=== PATIENT | female | born 1960 | race Caucasian/White ===

== ENCOUNTER 2019-09-19 16:19 | Emergency (ER) | payer OTHER ==
[~2019-09-19] VITALS: Ht 149.9 cm; Wt 72.6 kg
[2019-09-19 16:24] VITALS: BP 125/50
[2019-09-19 16:50] VITALS: BP 125/50
== END 2019-09-19 16:52 | disposition home or self-care (01) ==
LOC: MED 16:19
DX: R30.0 Dysuria (principal); N39.0 Urinary tract infection, site not specified; E11.9 Type 2 diabetes mellitus without complications; I10 Essential (primary) hypertension; J45.909 Unspecified asthma, uncomplicated; Z88.6 Allergy status to analgesic agent; Z88.0 Allergy status to penicillin; Z90.711 Acquired absence of uterus with remaining cervical stump; Z90.49 Acquired absence of other specified parts of digestive tract; Z98.890 Other specified postprocedural states
CPT/HCPCS: 81002; 81025; 99283

== ENCOUNTER 2022-11-17 11:50 | Emergency (ER) | payer BC, OTHER ==
[~2022-11-17] VITALS: Ht 149.9 cm; Wt 70.3 kg
[2022-11-17 12:04] VITALS: BP 125/67; PULSE 77; RESP 14; TEMP 98.4; O2SAT 97
[2022-11-17] MEDS ORDERED: KETOROLAC 30 MG/ML VIAL IM ONE (13:00)
[2022-11-17 14:55] VITALS: BP 125/67; PULSE 77; RESP 14; TEMP 98.4; O2SAT 97
== END 2022-11-17 14:55 | disposition home or self-care (01) ==
LOC: MED 11:50
DX: S82.492A Other fracture of shaft of left fibula, initial encounter for closed fracture (principal); S92.352A Displaced fracture of fifth metatarsal bone, left foot, initial encounter for closed fracture; J45.909 Unspecified asthma, uncomplicated; E78.5 Hyperlipidemia, unspecified; E11.40 Type 2 diabetes mellitus with diabetic neuropathy, unspecified; I10 Essential (primary) hypertension; K21.9 Gastro-esophageal reflux disease without esophagitis; Z88.0 Allergy status to penicillin; Z88.8 Allergy status to other drugs, medicaments and biological substances; W18.31XA Fall on same level due to stepping on an object, initial encounter; Y93.01 Activity, walking, marching and hiking; Y92.89 Other specified places as the place of occurrence of the external cause; Y99.8 Other external cause status
CPT/HCPCS: 29505; 73610; 73630; 96372; 99284; J1885